=== PATIENT | male | born 1980 | race Caucasian/White ===

== ENCOUNTER 2017-06-19 13:50 | Emergency (ER) | payer SELFPAY ==
[~2017-06-19] VITALS: Ht 172.7 cm; Wt 83.9 kg
[2017-06-19 13:58] VITALS: BP_SYST 157
[2017-06-19] MEDS ORDERED: KETOROLAC TROMETHAMINE 60 MG/2 ML VIAL IM ONE (14:00)
[2017-06-19] MEDS ORDERED: DEXAMETHASONE SOD PHOSPHATE 10 MG/ML VIAL IM ONE (14:15)
[2017-06-19 14:27] LABS: BILIRUBIN,URINE NEGATIVE (NEGATIVE); BLOOD, URINE NEGATIVE (NEGATIVE); CLARITY/URINE CLEAR (CLEAR); COLOR,URINE YELLOW (YELLOW); GLUCOSE,URINE NEGATIVE (NEGATIVE); KETONES,URINE NEGATIVE (NEGATIVE); LEUKOCYTE ESTERASE ,URINE NEGATIVE (NEGATIVE); NITRITE, URINE NEGATIVE (NEGATIVE); PROTEIN URINE NEGATIVE (NEGATIVE); UROBILINOGEN,URINE 0.2 (0.2-1.0)
[2017-06-19 15:32] VITALS: BP_SYST 152
== END 2017-06-19 15:32 | disposition home or self-care (01) ==
LOC: SED 13:50
DX: M54.17 Radiculopathy, lumbosacral region (principal); R03.0 Elevated blood-pressure reading, without diagnosis of hypertension
CPT/HCPCS: 81003; 96372; 99284; J1100; J1885

== ENCOUNTER 2019-11-22 10:12 | Emergency (ER) | payer BC ==
[~2019-11-22] VITALS: Ht 172.7 cm; Wt 84.8 kg
[2019-11-22] MEDS ORDERED: KETOROLAC TROMETHAMINE 60 MG/2 ML VIAL IM ONE (10:15)
[2019-11-22 10:16] VITALS: BP_SYST 136
--- NOTE | 2019-11-22 10:19 | NUR ---
Patient to ER bed 03 to gown for evaluation. Side rails up.
--- NOTE | 2019-11-22 10:23 | NUR ---
ER Dr. Dobbs at bedside examining patient.
[2019-11-22] MEDS ORDERED: DIAZEPAM 10 MG/2 ML DISP.SYRIN IM ONE (10:30)
--- NOTE | 2019-11-22 10:34 | NUR ---
Pt in [facility] with side rails up. Pt is alert and oriented.
--- NOTE | 2019-11-22 10:42 | NUR ---
Pt in [facility] with side rails up. No acute distress noted. C/O back pain.
[2019-11-22] MEDS ORDERED: DIAZEPAM 5 MG TABLET (VALIUM) PO ONE (10:45)
[2019-11-22 11:06] VITALS: BP_SYST 136
--- NOTE | 2019-11-22 11:06 | NUR ---
Patient given written and verbal discharge instructions and verbalizes understanding. ER MD discussed with patient the results and treatment provided. Patient in stable condition. ID arm band removed. Rx of motrin and valium given. Patient educated on pain management and to follow up with PMD. Pain Scale 3/10. Opportunity for questions provided and answered. Medication side effect fact sheet provided.
== END 2019-11-22 11:06 | disposition home or self-care (01) ==
LOC: SED 10:12
DX: M54.5 Low back pain (principal); F12.90 Cannabis use, unspecified, uncomplicated
CPT/HCPCS: 81002; 99283